=== PATIENT | male | born 2000 | race Caucasian/White ===

== ENCOUNTER 2023-11-13 11:12 | Emergency (ER) | payer OTHER ==
[~2023-11-13] VITALS: Ht 170.2 cm; Wt 71.8 kg
[2023-11-13 11:22] VITALS: BP 110/76; PULSE 86; RESP 20; TEMP 98.2; O2SAT 95
== END 2023-11-13 11:43 | disposition home or self-care (01) ==
LOC: MED 11:12
DX: R04.0 Epistaxis (principal)
CPT/HCPCS: 99282